=== PATIENT | male | born 2000 | race Caucasian/White ===

== ENCOUNTER 2025-04-03 10:15 | Emergency (ER) | payer SELFPAY ==
--- NOTE | 2025-04-03 11:28 | ED.GENMED ---
History of Present Illness
General
Chief Complaint: Eye Problems
Source: patient
Time Seen by Provider: 04/03/25 11:10
History of Present Illness
History of Present Illness:
24-year-old male with no significant past medical history presents to the emergency department for evaluation after he started to cut a piece of wood and despite wearing safety glasses the sawdust flew underneath the safety glasses and into his left
eye and has had persistent pain, tearing and foreign body sensation. Patient does wear glasses but not contact lenses. No other injuries were sustained.
Past History
Past History
ED Past Medical History: None
ED Past Surgical History: Orthopedic and Other
Social History
Tobacco: Non-smoker
Alcohol: Occasional
Drug: None
Personal: Single
Living: with family
Employment: Employed
Review of Systems
Review of Systems
All Other Systems: ROS reviewed and negative except as documented in HPI and ROS
Phy Exam
Physical Exam
Physical Exam:
GENERAL: Alert , in no apparent distress
EYE: conjunctiva injected on the right, increased tearing, no FB, no hyphema, PERRL, EOMI
VA: R: 20/25, L: 20/60, B: 20/30
FLUORESCEIN STAIN: Small uptake center of the cornea, no foreign body
Head: Normocephalic atraumatic
NECK: Supple,
ENT: mmm.
LUNGS: no acute respiratory distress
NEUROLOGICAL: Alert and oriented
SKIN: Warm and dry, skin intact.
MUSCULOSKELETAL: well perfused.
PSYCH: Normal and appropriate interaction.
Scores
Heart Failure Risk
Heart Failure Risk Score: Not Applicable
Heart Score for Chest Pain Patients
STEMI patient?: Not applicable
Withdrawal Assessment of Alcohol
Withdrawal Assessment Completed?: Not applicable
Course
Orders/Labs/Results
Orders:
Orders
04/03/25 11:28
Visual Acuity- Treatment ONCE
Vital Signs
Initial and Last Documented VS:
Initial Vital Signs
Temp Pulse Resp Pulse Ox
97.4 F 82 16 98
04/03/25 10:19 04/03/25 10:19 04/03/25 10:19 04/03/25 10:19
Last Documented Vital Signs
Temp Pulse Resp BP Pulse Ox
97.4 F 82 16 137/79 98
04/03/25 10:19 04/03/25 10:19 04/03/25 10:19 04/03/25 11:36 04/03/25 11:28
MDM/Problems Addressed
Differential Diagnosis Includes:
Corneal abrasion
Corneal ulceration
FB
Hyphema
Glaucoma
MDM/Problems Addressed:
24-year-old male presenting to the ER for evaluation after sawdust flew underneath his safety goggles and into his left eye. Patient with continuous foreign body sensation since. Eye exam reveals a corneal abrasion to the left eye. Patient noted
significant relief following tetracaine instillation. Will initiate ofloxacin drops. NSAIDs/cool compresses as needed for pain. Stable for discharge home.
*Pulse Oximetry
SaO2: 98
Oxygen Mode of Delivery: Room air
Patient hypoxic: no
*Critical Care Note
Total Time (30-74mins, 75-104mins- exclusive of procedures): Not Applicable
ED Attending Note
-
Portions of this chart may have been created with voice recognition software.� Occasional wrong word or��sound alike� substitutions may have occurred due to the inherent limitations of voice recognition software.
Discharge Plan
Departure
Patient Disposition: Home (Routine Discharge)
Date of Disposition: 04/03/25
Time of Disposition: 11:29
Patient with high blood pressure during this ER visit?: No
Discharge Problem:
Injury of conjunctiva and corneal abrasion of left eye w/o FB
Instructions: Corneal Abrasion (DC)
Prescriptions:
New
ofloxacin 0.3 % drops
1 drp ophthalmic (eye) QID 5 Days Qty: 5 0RF
Referrals:
Doc Leon DO [Family Provider]
Interventions
Interventions:
*Nursing Disposition Last Done: 04/03/25 11:43
Discharge Date and Time
Discharge Date/Time: 04/03/25 11:44
Print Language: UKRAINIAN
[2025-04-03 11:36] VITALS: BP 137/79
== END 2025-04-03 11:44 | disposition home or self-care (01) ==
LOC: EMR 10:15
PROVIDERS: EMERGENCY PHYSICIAN Emergency Medicine; FAMILY PHYSICIAN Internal Medicine
DX: S05.02XA Injury of conjunctiva and corneal abrasion without foreign body, left eye, initial encounter (principal); W20.8XXA Other cause of strike by thrown, projected or falling object, initial encounter; Y93.89 Activity, other specified
CPT/HCPCS: 99283